=== PATIENT | female | born 1985 | race Caucasian/White ===

== ENCOUNTER 2022-01-24 14:44 | Outpatient (CLI) | payer OTHER, SELFPAY ==
[2022-01-24 21:45] LABS: Albumin* 4.2 g/dL (3.3-5.0); Chloride* 105 mmol/L (96-114)
[2022-01-24 21:46] LABS: Potassium* 4.2 mmol/L (3.6-5.1); Sodium* 139 mmol/L (135-149)
[2022-01-24 21:48] LABS: Aspartate Amino Transferase* 22 U/L (12-35); Bilirubin Total* 0.1 mg/dL (0.1-1.5); Carbon Dioxide* 26 mmol/L (20-32); Creatinine* 0.9 mg/dL (0.5-1.5); Estimated Glomerular Filt Rate 84 ml/min
[2022-01-24 21:49] LABS: Alanine Aminotransferase* 19 U/L (4-35); Alkaline Phosphatase* 117 U/L (40-150); Blood Urea Nitrogen* 10 mg/dL (5-24); Calcium* 9.1 mg/dL (8.4-10.6); Glucose* 96 mg/dL (60-115)
== END 2022-01-24 14:45 | disposition home or self-care (01) ==
PROVIDERS: PCP Family Medicine; Visit Provider Family Medicine
DX: L29.9 Pruritus, unspecified (principal)
CPT/HCPCS: 80053; 84443

== ENCOUNTER 2022-03-23 12:00 | Outpatient (CLI) | payer OTHER, SELFPAY ==
[2022-03-23 21:22] LABS: Chloride* 104 mmol/L (96-114); Sodium* 139 mmol/L (135-149)
[2022-03-23 21:23] LABS: Potassium* 4.8 mmol/L (3.6-5.1)
[2022-03-23 21:25] LABS: Creatinine* 0.8 mg/dL (0.5-1.5); Estimated Glomerular Filt Rate 97 ml/min
[2022-03-23 21:26] LABS: Blood Urea Nitrogen* 10 mg/dL (5-24); Calcium* 10.1 mg/dL (8.4-10.6); Carbon Dioxide* 27 mmol/L (20-32); Glucose* 86 mg/dL (60-115)
== END 2022-03-23 12:01 | disposition home or self-care (01) ==
PROVIDERS: PCP Family Medicine; Visit Provider Family Medicine
DX: Z01.818 Encounter for other preprocedural examination (principal); E78.5 Hyperlipidemia, unspecified; J45.909 Unspecified asthma, uncomplicated; R73.09 Other abnormal glucose
CPT/HCPCS: 80048

== ENCOUNTER 2022-07-19 13:50 | Outpatient (CLI) | payer OTHER, SELFPAY ==
[2022-07-19 13:23] LABS: Albumin* 4.1 g/dL (3.3-5.0); Chloride* 106 mmol/L (96-114)
[2022-07-19 13:24] LABS: Potassium* 3.9 mmol/L (3.6-5.1); Sodium* 140 mmol/L (135-149)
[2022-07-19 13:26] LABS: Cholesterol* 267 mg/dL (90-199); Creatinine* 0.7 mg/dL (0.5-1.5); Estimated Glomerular Filt Rate 113 ml/min
[2022-07-19 13:27] LABS: Alanine Aminotransferase* 36 U/L (4-35); Alkaline Phosphatase* 151 U/L (40-150); Aspartate Amino Transferase* 32 U/L (12-35); Bilirubin Total* 0.6 mg/dL (0.1-1.5); Blood Urea Nitrogen* 13 mg/dL (5-24); Calcium* 9.1 mg/dL (8.4-10.6); Carbon Dioxide* 29 mmol/L (20-32); Glucose* 101 mg/dL (60-115); Magnesium* 2.1 mg/dL (1.5-2.6); Total Protein* 6.9 g/dL (6.0-8.3); Triglycerides* 112 mg/dL (40-149)
[2022-07-19 13:28] LABS: HDL Cholesterol* 72 mg/dL (>=50); LDL Cholesterol Calculated 173 mg/dL (<100)
[2022-07-19 13:29] LABS: C Reactive Protein* 1.4 mg/dL (0.5-1.0)
[2022-07-20 22:23] LABS: Rheumatoid Factor <10 IU/mL (0-14)
[2022-07-20 23:58] LABS: EBV Antibody-Early (D)Ag IgG <5.0 U/mL (0.0-10.9)
[2022-07-21 07:53] LABS: Anti-Nuclear Ab(ANA)IgG ELISA None Detected (None Detected)
[2022-07-21 16:54] LABS: HLA-B27 Negative (Negative)
== END 2022-07-19 13:51 | disposition home or self-care (01) ==
PROVIDERS: PCP Family Medicine; Visit Provider Family Medicine
DX: E66.01 Morbid (severe) obesity due to excess calories (principal); E78.5 Hyperlipidemia, unspecified; M25.50 Pain in unspecified joint; R73.03 Prediabetes; R53.83 Other fatigue; I10 Essential (primary) hypertension
CPT/HCPCS: 80053; 80061; 83735; 84443; 86039; 86140; 86200; 86431; 86663; 86812

== ENCOUNTER 2022-10-11 09:04 | Outpatient (CLI) | payer OTHER, SELFPAY | END 2022-10-11 09:05 | disposition home or self-care (01) | LOC: NFLDREF 15:43 | PROVIDERS: PCP Family Medicine; Referring Provider Family Medicine; Visit Provider Family Medicine | DX: E78.5 Hyperlipidemia, unspecified (principal); R73.03 Prediabetes; E66.01 Morbid (severe) obesity due to excess calories | CPT/HCPCS: 80061 ==

== ENCOUNTER 2023-04-17 09:00 | Outpatient (CLI) | payer OTHER, SELFPAY | END 2023-04-17 09:01 | disposition home or self-care (01) | LOC: NFLDREF 04-19 18:32 | PROVIDERS: PCP Family Medicine; Referring Provider Family Medicine; Visit Provider Family Medicine | DX: E66.01 Morbid (severe) obesity due to excess calories (principal); R73.03 Prediabetes; E78.5 Hyperlipidemia, unspecified | CPT/HCPCS: 80053; 80061 ==

== ENCOUNTER 2023-09-19 06:53 | Outpatient (CLI) | payer OTHER, SELFPAY | END 2023-09-19 06:54 | disposition home or self-care (01) | PROVIDERS: PCP Family Medicine; Visit Provider Family Medicine | DX: R73.03 Prediabetes (principal); K76.0 Fatty (change of) liver, not elsewhere classified | CPT/HCPCS: 80053; 83036; 86140 ==

== ENCOUNTER 2024-03-11 09:58 | Outpatient (CLI) | payer OTHER, SELFPAY ==
[2024-03-22 01:48] LABS: HPV Source Endocervical; HPV, High Risk by TMA Not Detected
== END 2024-03-11 09:59 | disposition home or self-care (01) ==
PROVIDERS: PCP Family Medicine; Visit Provider Family Medicine
DX: E78.5 Hyperlipidemia, unspecified (principal); K76.0 Fatty (change of) liver, not elsewhere classified; R73.03 Prediabetes; L29.9 Pruritus, unspecified; Z12.4 Encounter for screening for malignant neoplasm of cervix; Z13.29 Encounter for screening for other suspected endocrine disorder
CPT/HCPCS: 80053; 80061; 82239; 84443; 86039; 86376; 86381; 86803; 87624; 87625; 88141; 88142

== ENCOUNTER 2024-07-30 14:48 | Outpatient (CLI) | payer OTHER, SELFPAY | END 2024-07-30 14:49 | disposition home or self-care (01) | LOC: MAMMO 14:49 | PROVIDERS: PCP Family Medicine; Visit Provider Family Medicine | DX: Z12.31 Encounter for screening mammogram for malignant neoplasm of breast (principal) | CPT/HCPCS: 77063; 77067 ==

== ENCOUNTER 2024-12-30 08:08 | Outpatient (CLI) | payer OTHER, SELFPAY ==
[2024-12-30 13:35] LABS: Cannabinoid Screen Urine Negative (Negative); Methamphetamines Screen Urine Negative (Negative); Tricyclic Antidepressant Urine Negative (Negative)
== END 2024-12-30 08:09 | disposition home or self-care (01) ==
LOC: NPINS 08:12
PROVIDERS: PCP Family Medicine; Visit Provider Nurse Practitioner Psychiatric/Mental Health
DX: F90.2 Attention-deficit hyperactivity disorder, combined type (principal)
CPT/HCPCS: 80306

== ENCOUNTER 2025-04-29 10:16 | Outpatient (CLI) | payer OTHER, SELFPAY | END 2025-04-29 10:17 | disposition home or self-care (01) | PROVIDERS: PCP Family Medicine; Visit Provider Family Medicine | DX: E78.5 Hyperlipidemia, unspecified (principal); K76.0 Fatty (change of) liver, not elsewhere classified | CPT/HCPCS: 80053; 80061 ==